=== PATIENT | female | born 2000 | race Hispanic/Latino ===

== ENCOUNTER 2022-12-20 06:12 | Day surgery (SDC) | payer BC ==
[2022-12-17 16:19] VITALS: BMI 46.7
[2022-12-20] MEDS ORDERED: Dexmedetomidine 200 MCG/2 ML VIAL ONE (06:22)
[2022-12-20] MEDS ORDERED: SUGAMMADEX SODIUM 200 MG/2 ML VIAL ONE (06:22)
[2022-12-20] MEDS ORDERED: fentaNYL PF 100 MCG/2 ML SYRINGE ONE (06:22)
[2022-12-20] MEDS ORDERED: EPINEPHrine 1 MG/ML AMP ONE (06:57)
[2022-12-20] MEDS ORDERED: Bupivacaine 0.25% HCL 30 ML VIAL ONE (06:57)
[2022-12-20] MEDS ORDERED: Iopamidol 30 ML ONE (06:57)
[2022-12-20] MEDS ORDERED: Sodium Chloride 0.9% 100 ML ONE (07:27)
[2022-12-20] MEDS ORDERED: cefOXitin 2 GM VIAL ONE (07:27)
[2022-12-20] MEDS ORDERED: Albuterol HFA (OR) 200 PUFF INH ONE (07:38)
[2022-12-20] MEDS ORDERED: Rocuronium Bromide 10 MG/ML (10ML VIAL) ONE (07:38)
[2022-12-20] MEDS ORDERED: Lidocaine 1% PF 5 ML VIAL ONE (07:38)
[2022-12-20] MEDS ORDERED: Ketorolac Tromethamine 30 MG/ML VIAL ONE (07:38)
[2022-12-20] MEDS ORDERED: PROPOFOL 200 MG/20 ML VIAL ONE (07:38)
[2022-12-20] MEDS ORDERED: Ondansetron PF 4 MG/2 ML Vial ONE (07:38)
[2022-12-20] MEDS ORDERED: ePHEDrine Sulfate 50 MG/10 ML VIAL ONE (07:38)
[2022-12-20] MEDS ORDERED: PHENYLEPHRINE-NS 100 MCG/ML 10 ML SYRINGE ONE (07:38)
[2022-12-20] MEDS ORDERED: Dexamethasone 20 MG/5 ML VIAL ONE (07:38)
[2022-12-20] MEDS ORDERED: fentaNYL 50 mcg/mL 1 mL Vial ONE (08:59)
[2022-12-20] MEDS ORDERED: HYDROmorphone 0.5 MG/0.5 ML SYRINGE ONE ×2 (09:16→09:39)
[2022-12-20] MEDS ORDERED: Morphine 2 MG/ML VIAL ONE (10:57)
[2022-12-20] MEDS ORDERED: HYDROcodone/Acetaminophen 5/325 mg Tablet ONE (11:26)
== END 2022-12-20 12:35 | disposition home or self-care (01) ==
LOC: SDC 06:12
PROVIDERS: ATTEND Surgery
PROC: BF13YZZ Fluoroscopy of Gallbladder and Bile Ducts using Other Contrast (ICD-10-PCS; principal; 2022-12-20)
PROC: 0FT44ZZ Resection of Gallbladder, Percutaneous Endoscopic Approach (ICD-10-PCS; principal; 2022-12-20)
DX: K80.10 Calculus of gallbladder with chronic cholecystitis without obstruction (principal); K83.8 Other specified diseases of biliary tract; E66.01 Morbid (severe) obesity due to excess calories; Z68.42 Body mass index [BMI] 45.0-49.9, adult
CPT/HCPCS: 36416; 47532; 88304; C1889; J0171; J0694; J1100; J1170; J1885; J2272; J2405; J2704; J3010; J3490; Q9967; S0020

== ENCOUNTER 2024-10-25 10:46 | Emergency (ER) | payer SELFPAY ==
[2024-10-25] MEDS ORDERED: HYDROcodone/Acetaminophen 5/325 mg Tablet ONE (11:46)
[2024-10-25 12:00] LABS: Pregnancy Test - Urine (BHCG) Negative (Negative)
[2024-10-25 12:01] LABS: Pregu Control Background? CLEAR/WHITE (CLR/WHITE); Pregu Control Bar Appear? YES (CONTROL BAR)
[2024-10-25 12:20] LABS: #Basophils 0.06 10x3/uL (0.0-0.2); #Eosinophils 0.12 10x3/uL (0.0-0.7); #Monocytes 0.60 10x3/uL (0.11-0.59); #Neutrophils 9.40 10x3/uL (1.40-6.50); %Basophils 0.5 % (0.0-1.0); %Eosinophils 0.9 % (0.0-10.0); %Lymphocytes 19.1 % (21.0-51.0); %Monocytes 4.7 % (0.0-10.0); %Neutrophils 74.4 % (42.0-75.0); Hematocrit 43.1 % (36.0-47.0); Hemoglobin 13.7 g/dL (12.0-16.0); Mean Corpuscular Hemoglobin 28.2 pg (27.0-31.0); Mean Corpuscular Volume 88.9 fL (78.0-98.0); Platelet Count 451 10x3/uL (130-400); Red Blood Cell (RBC) Count 4.85 mill/uL (4.20-5.40); White Blood Cell (WBC) Count 12.64 10x3/uL (4.8-10.8)
[2024-10-25 12:24] LABS: CAUTI Indications for Culture Dysuria,urgency,freq; Glucose, Urine (Dipstick) >=1000 mg/dL (Negative); Leukocyte 250 Leu/uL (Negative); Protein, Urine (Dipstick) 30 mg/dL (Neg-Trace); RBC/HPF Greater than 50 HPF (0-3); Specific Gravity, Urine 1.035 (1.002-1.036)
[2024-10-25 12:28] LABS: Bacteria/HPF 1+ HPF (None Seen)
[2024-10-25 12:30] LABS: Urine Culture Reflex Yes Yes
[2024-10-25 12:37] LABS: ALT (SGPT) 30 U/L (Less than 34); AST (SGOT) 21 U/L (11-34); Albumin 3.7 g/dL (3.1-4.5); Alkaline Phosphatase 80 U/L (40-110); Anion Gap 11 mmol/L (10-20); BUN (Urea Nitrogen) 12 mg/dL (7.0-18.7); Bilirubin, Total 0.3 mg/dL (0.3-1.2); Calc. Creatinine Clearance 0 mL/min (70-130); Calcium 8.8 mg/dL (7.8-10.44); Carbon Dioxide 23 mmol/L (22-29); Chloride 106 mmol/L (98-107); Globulin 4.0 g/dL (2.4-3.5); Glucose 165 mg/dL (70-105); Potassium 3.9 mmol/L (3.5-5.1); Sodium 136 mmol/L (136-145)
[2024-10-25] MEDS ORDERED: cefTRIAXone (ROCEPHIN) 1 GM VIAL ONE (13:27)
[2024-10-25 14:09] LABS: CAUTI Indications for Culture Dysuria,urgency,freq; Glucose, Urine (Dipstick) 150 mg/dL (Negative); Leukocyte Negative Leu/uL (Negative); Protein, Urine (Dipstick) 10 mg/dL (Neg-Trace); RBC/HPF Greater than 50 HPF (0-3); Specific Gravity, Urine 1.026 (1.002-1.036)
[2024-10-25 14:17] LABS: Bacteria/HPF Rare-Few HPF (None Seen)
[2024-10-25 14:18] LABS: Urine Culture Reflex No No
== END 2024-10-25 15:00 | disposition home or self-care (01) ==
LOC: ERS 10:46
DX: N13.2 Hydronephrosis with renal and ureteral calculous obstruction (principal); E11.9 Type 2 diabetes mellitus without complications; E78.5 Hyperlipidemia, unspecified; Z79.84 Long term (current) use of oral hypoglycemic drugs
CPT/HCPCS: 36415; 51701; 74176; 80053; 81001; 81025; 85025; 87077; 87086; 96365; J0696; Q0162